=== PATIENT | female | born 1930 | race African-American/Black ===

== ENCOUNTER → 2020-08-25 | Outpatient (CLI) | payer MEDICARE ==
[2014-07-05 11:10] VITALS: BP 154/76
[~2020-08-25] MED LIST: ATOR10TA PO; CHOL400T14 PO; GLIP10TA13 PO; LISI10TA2 PO; METF-658 PO
--- NOTE | 2020-08-25 14:30 | KCIC ---
Bilateral digital screening mammograms with 3-D tomosynthesis: Reason for examination: Routine screening. Comparison is made to previous studies dated 12/08/2014 and 07/02/2012. Bilateral mammograms in CC and oblique projections were obtained with 2-D imaging and 3-D tomosynthesis imaging on a Siemens Inspiration unit and reviewed on the workstation. Interpretation was made with the benefit of CAD. The skin and nipples show no abnormalities. No abnormal axillary lymph nodes are seen. The breast parenchyma shows scattered fatty and fibroglandular density. (Breast density: Category B.) There appears to be clustered microcalcifications in the 3:00 position posteriorly in the left breast which may be associated with a small nodular density. Further evaluation with coned magnification views and left breast ultrasound is recommended. There are no other dominant masses, suspicious calcifications or architectural distortion. Scattered benign-appearing calcifications are present. Impression: Clustered calcifications at the 3:00 position posteriorly in the left breast which may be associated with a small nodule. Recommend further evaluation with coned magnification views and left breast ultrasound. BI-RADS Category 0: Incomplete. Needs additional imaging evaluation. "Our facility is accredited by the [employer] Mammography [employer]." This patient's information has been entered into a reminder system for the patient to be notified with the results of her examination and a target date for the next mammogram. Electronically signed by: Fide Armijo MD (08/25/2020 2:27 PM) [email or web address]
== END | disposition home or self-care (01) ==
LOC: KCIC MAMMO 09:15
PROVIDERS: ATTEND Internal Medicine
DX: Z12.31 Encounter for screening mammogram for malignant neoplasm of breast (principal)
CPT/HCPCS: 77063; 77067

== ENCOUNTER → 2020-10-24 | Outpatient (CLI) | payer MEDICARE ==
[2014-07-05 11:10] VITALS: BP 154/76
--- NOTE | 2020-10-24 10:55 | KCIC ---
Left digital diagnostic mammogram and left breast ultrasound Reason for examination: Workup of left outer breast nodule and microcalcifications Comparison is made to previous study dated mammogram August 25, 2020 and priors Left CC and ML magnification digital views obtained. Interpretation was made with the benefit of CAD. Left mammogram: The skin and nipples show no abnormalities. No abnormal lymph nodes are seen. The breast parenchyma is scattered fibroglandular elements. (Breast density: Category B.) at the left outer breast 3:00 position posterior depth there is a subcentimeter moderately dense mass with indistinct margins associated with several rounded punctate clustered microcalcifications with slight pleomorphism, the calcifications are new and the density and mass margins have become more distinct from prior studies. ULTRASOUND: At the left breast 2:00 position 7 cm from the nipple there is a 0.7 cm hypoechoic nonshadowing microlobular nonshadowing lesion which may be a cluster of cysts corresponding to the region of the mass and calcifications on mammography. While the sonographic features are not highly suspicious, the mammographic features are of greater suspicion and biopsy is advised. No axillary adenopathy. Impression: Left outer breast suspicious microcalcifications associated with a hypoechoic complex cystic or solid mass. Left breast ultrasound-guided core needle biopsy of the mass and calcifications is advised. If after biopsy the sonographic and mammographic lesions are discovered to be discordant, or if no significant calcifications are yielded from the ultrasound-guided biopsy, subsequent stereotactic mammographic guided needle biopsy would be a consideration. Findings were discussed with the patient at time of exam. These findings were called to Dr. Quiñones's medical office receptionist assistant [place] at 10:50 AM October 24, 2020. BI-RADS Category 4: Suspicious. "Our facility is accredited by the [employer]ammography [employer]." This patient's information has been entered into a reminder system for the patient to be notified with the results of her examination and a target date for the next mammogram. Electronically signed by: Nirmal Ortiz MD (10/24/2020 10:52 AM) [email or web address]
== END ==
LOC: KCIC MAMMO 09:36
PROVIDERS: ATTEND Internal Medicine
DX: N60.02 Solitary cyst of left breast (principal)
CPT/HCPCS: 76641; 77065

== ENCOUNTER → 2020-11-17 | Outpatient (CLI) | payer MEDICARE ==
[2014-07-05 11:10] VITALS: BP 154/76
--- NOTE | 2020-11-17 15:37 | RAD ---
Examination: MG DIAGNOSTICUNILAT MAMMO, US GDE NDL BX/ASPIR/INJ/LOC History: Reason: ABNORMAL LEFT MAMMOGRAM/POST BIOPSY CLIP PLACEMENT / Spl. Instructions: / History: Comparison/Correlation: None Findings: Risks, benefits, and alternatives regarding ultrasound-guided left breast biopsy of the 2:0 0 mass 7 cm from the nipple were discussed with the patient and informed consent was obtained. Cleans ing with ChloraPrep at the anticipated site of needle placement was performed. Sterile draping, steri le gel, and sterile probe cover is were utilized. Approximately 8 cc of 1 percent lidocaine was admin istered subcutaneously and along the expected course of the needle tracks. Lateral approach was utilized. Scalpel incision was made. Introducer for a 12-gauge needle was placed . A total of 5 passes were made with a 12-gauge needle via the introducer. Samples were placed in a f ormalin jar. Biopsy clip marker was then placed via the introducer. Mediolateral and CC digital images of the left breast were obtained. Scattered fibroglandular densiti es noted. Biopsy clip marker involving left upper-outer breast. Previously seen calcifications are si gnificantly less in number. A biopsy clip marker may be approximately 0.5 center anterior to the site of the recently seen calcifications. No hematoma. The patient tolerated the procedure well without immediate complications. Impression: Successful ultrasound guided core biopsy of the left breast 2:00 mass. Specimens sent to lab. Electronically signed by: Kash Álvarez MD (11/17/2020 3:35 PM) [id number]
--- NOTE | 2020-11-23 23:06 | PATHOLOGY ---
[facility] Accession Number: [id number] . 01 Material submitted: . breast - LEFT BREAST TISSUE, 2:00, 7CMFN. Modifiers: left, 2:00 . 01 Clinical history: . LEFT BREAST MASS . 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 (SEE COMMENT). (CLW:mane; 11/21/2020) [facility] 11/23/2020 2222 Local . 02 Comment: Properly controlled immunohistochemical stains are performed. . Blocks A1 and A2: CK5/6 - loss of staining in the ADH; Smooth muscle myosin - intact myoepithelial cells; P63 - intact myoepithelial cells. . The case is co-reviewed with Dr. Vickie Holliday and Dr. Genet Pereira. Clinical and radiographic correlation is required. The case will be discussed with Dr. Qasim Quiñones and/or his office on 11/27/20. . (CLW:mane; 11/21/2020) . 02 Electronically signed: . Kassandra Gustafson MD, Pathologist NPI- [id number] . 01 Gross description: . The specimen is received in formalin, labeled "Rola Christianson, left breast 2:00 7 cm from nipple". Received are multiple needle cores of fibrofatty tissue measuring 1.4 x 1.2 x 0.2 cm in aggregate dimensions. The specimen is submitted entirely in cassettes A1 through A3. The cold ischemic time is 1 minute. The total formalin fixation time is 11 hours and 15 minutes. (CAA; 11/17/2020) QAC/QAC 11/17/2020 1654 Local . 02 Pathologist provided ICD-10: N60.82 . 02 CPT . 174848, N61985, [id number] Specimen Comment: A courtesy copy of this report has been sent to [phone], [phone] Specimen Comment: [id number] Specimen Comment: Report sent to / DR QUIÑONES Performed at: 01 [facility] [address], [place] [id number] MD Damon Alejandre MD Phone: [phone] Performed at: 02 [facility] [address], [place] [id number] MD Real Ku MD Phone: [phone]
== END | disposition home or self-care (01) ==
LOC: US 10:12
PROVIDERS: ATTEND Internal Medicine
DX: R92.8 Other abnormal and inconclusive findings on diagnostic imaging of breast (principal); N63.21 Unspecified lump in the left breast, upper outer quadrant; D05.12 Intraductal carcinoma in situ of left breast; R92.0 Mammographic microcalcification found on diagnostic imaging of breast; Z88.0 Allergy status to penicillin; Z88.1 Allergy status to other antibiotic agents; Z88.8 Allergy status to other drugs, medicaments and biological substances
CPT/HCPCS: 19083; 77065; C1713; 19081; 76942

== ENCOUNTER → 2021-01-11 | Outpatient (CLI) | payer MEDICARE ==
[2014-07-05 11:10] VITALS: BP 154/76
[~2021-01-11] MED LIST changes: +CYAN25008 PO; +LISI10TA16 PO; -LISI10TA2 PO; +METF10007 PO
== END ==
LOC: LAB 13:25
PROVIDERS: ATTEND Specialist
DX: Z01.812 Encounter for preprocedural laboratory examination (principal); Z20.822 Contact with and (suspected) exposure to COVID-19
CPT/HCPCS: U0003

== ENCOUNTER 2021-01-24 11:30 | Day surgery (SDC) | payer MEDICARE ==
--- NOTE | 2021-01-23 22:32 | HP ---
ADMIT DATE: HISTORY OF PRESENT ILLNESS: The patient was doing well without any known disease until she had a routine mammogram, which showed a suspicious area of the left breast. This was biopsied and showed atypia with possible beginning of carcinoma of the breast. She therefore was sent to me. The patient had no other symptoms and is doing otherwise well. PAST MEDICAL HISTORY: Shows normal childhood diseases. ALLERGIES: She has no allergies. MEDICATIONS: She takes medication for hypertension only and also takes medicine for diabetes, which was by mouth. She does not take insulin and does take medicine for elevated cholesterol. PAST SURGICAL HISTORY: Included an ectopic and a hysterectomy. Otherwise, no other surgery. REVIEW OF SYSTEMS: Negative. She had a needle biopsy of the left breast, which showed the pathology noted above. FAMILY HISTORY: Positive for diabetes and hypertension. PHYSICAL EXAMINATION: GENERAL: Shows an alert female. She was in no acute distress. HEAD, EYES, NOSE AND THROAT: Grossly normal. CHEST: Bilaterally was clear to auscultation. HEART: Had no murmurs and no friction rubs. She did have a rate of 70 beats per minute and it was regular. ABDOMEN AND EXTREMITIES: Grossly negative as were the extremities. BREASTS: Examination of the right and left breast in the right and left axilla were negative. There were no masses, no skin retraction and there was no evidence of carcinoma as there was no dimpling either. IMPRESSION: Hypertension, hypercholesterolemia, diabetes and left breast mass. Plan to remove the left breast mass and proceed. It is noted that she did not want to have anything done, but the mass removed. We did discuss sentinel node biopsies and other treatments, but she did not want that. She only wanted at this point a biopsy of the concerned area of the left breast with complete removal of the mass if possible We will do that and proceed accordingly depending on the pathology. BARBARA DUARTE MD DR: FRANCESCA/geremias JOB#: [id number] / [id number]
[~2021-01-24 11:30] MED LIST changes: +HYDROmorphone 2 MG/ML VIAL IVP PRN; +IV RINGERS,LACTATED 1000ML 1,000 ML IV SCH; +METHYLENE BLUE 0.5% 10ml AMPULE. IJ ONE; +MORPHINE SULFATE 2 MG/ML VIAL. IVP PRN; +PROCHLORPERAZINE 10 MG/2 ML VIAL. IVP PRN; +fentaNYL PF VIAL 100 MCG/2 ML VIAL IVP PRN
[2021-01-24] MEDS ORDERED: DEXTROSE 50% 25 GM / 50ML DISP.SYRIN. IV ONE ×2 (12:12→12:15)
[2021-01-24] MEDS ORDERED: INSULIN LISPRO 100 UNIT/ML 3ML VIAL for OP,RR ONLY. SQ PRN (12:15)
[2021-01-24] MEDS ORDERED: METHYLENE BLUE 0.5% 10ml AMPULE. ONE (12:28)
[2021-01-24 12:47] LABS: BASO % 0 % (0-3); EOS # 0.1 x10^3/uL (0.0-0.7); EOS % 1 % (0-3); HEMATOCRIT 31.7 % (36.0-47.0); HEMOGLOBIN 10.2 g/dL (12.0-15.5); LYMPH % 23 % (24-48); MEAN CORPUSCULAR HEMOGLOBIN 26 pg (25-35); MEAN CORPUSCULAR HGB CONC 32 g/dL (31-37); MEAN CORPUSCULAR VOLUME 80 fL (79-100); MONO # 0.5 x10^3/uL (0.0-1.1); MONO % 6 % (0-9); NEUT # 5.9 x10^3/uL (1.8-7.7); NEUT % 70 % (31-73); PLATELET COUNT 197 x10^3/uL (140-400); RED BLOOD COUNT 3.95 x10^6/uL (3.50-5.40); RED CELL DISTRIBUTION WIDTH 16.3 % (11.5-14.5); WHITE BLOOD COUNT 8.4 x10^3/uL (4.0-11.0)
[2021-01-24] MEDS ORDERED: DEXAMETHASONE SOD PHOS 4 MG/ML VIAL ONE (12:50)
[2021-01-24] MEDS ORDERED: ONDANSETRON PF 4 MG/2 ML VIAL. ONE (12:50)
[2021-01-24] MEDS ORDERED: PROPOFOL 10 MG/ML (20ML) VIAL. IV ONE (12:50)
[2021-01-24] MEDS ORDERED: LIDOCAINE 2% PF 5 ML VIAL. ONE (12:50)
[2021-01-24 12:58] LABS: CALCIUM 9.5 mg/dL (8.5-10.1); CREATININE 0.9 mg/dL (0.6-1.0); GFR 71.5; POTASSIUM 4.2 mmol/L (3.5-5.1)
[2021-01-24 13:03] LABS: ALBUMIN 3.7 g/dL (3.4-5.0); ALBUMIN/GLOBULIN RATIO 0.9 (1.0-1.7); TOTAL BILIRUBIN 0.4 mg/dL (0.2-1.0); TOTAL PROTEIN 7.6 g/dL (6.4-8.2)
--- NOTE | 2021-01-24 13:27 | PDOC ---
SURGICAL PROGRESS NOTE DATE: 01/24/21 TIME: 13:26 no change in dictated H&P/ Vital Signs Vital Signs Date Time Temp Pulse Resp B/P (MAP) Pulse Ox O2 Delivery O2 Flow Rate FiO2 01/24/21 12:01 97.8 68 20 189/81 99 Room Air 97.8 Labs Laboratory Tests Test 01/24/21 12:09 01/24/21 12:35 01/24/21 12:45 01/24/21 13:09 Glucose (Fingerstick) 41 mg/dL (70-99) 39 mg/dL (70-99) 86 mg/dL (70-99) White Blood Count 8.4 x10^3/uL (4.0-11.0) Red Blood Count 3.95 x10^6/uL (3.50-5.40) Hemoglobin 10.2 g/dL (12.0-15.5) Hematocrit 31.7 % (36.0-47.0) Mean Corpuscular Volume 80 fL (79-100) Mean Corpuscular Hemoglobin 26 pg (25-35) Mean Corpuscular Hemoglobin Concent 32 g/dL (31-37) Red Cell Distribution Width 16.3 % (11.5-14.5) Platelet Count 197 x10^3/uL (140-400) Neutrophils (%) (Auto) 70 % (31-73) Lymphocytes (%) (Auto) 23 % (24-48) Monocytes (%) (Auto) 6 % (0-9) Eosinophils (%) (Auto) 1 % (0-3) Basophils (%) (Auto) 0 % (0-3) Neutrophils # (Auto) 5.9 x10^3/uL (1.8-7.7) Lymphocytes # (Auto) 2.0 x10^3/uL (1.0-4.8) Monocytes # (Auto) 0.5 x10^3/uL (0.0-1.1) Eosinophils # (Auto) 0.1 x10^3/uL (0.0-0.7) Basophils # (Auto) 0.0 x10^3/uL (0.0-0.2) Sodium Level 142 mmol/L (136-145) Potassium Level 4.2 mmol/L (3.5-5.1) Chloride Level 107 mmol/L (98-107) Carbon Dioxide Level 29 mmol/L (21-32) Anion Gap 6 (6-14) Blood Urea Nitrogen 13 mg/dL (7-20) Creatinine 0.9 mg/dL (0.6-1.0) Estimated GFR (Cockcroft-Gault) 71.5 BUN/Creatinine Ratio 14 (6-20) Glucose Level 48 mg/dL (70-99) Calcium Level 9.5 mg/dL (8.5-10.1) Total Bilirubin 0.4 mg/dL (0.2-1.0) Aspartate Amino Transf (AST/SGOT) 16 U/L (15-37) Alanine Aminotransferase (ALT/SGPT) 22 U/L (14-59) Alkaline Phosphatase 57 U/L (46-116) Total Protein 7.6 g/dL (6.4-8.2) Albumin 3.7 g/dL (3.4-5.0) Albumin/Globulin Ratio 0.9 (1.0-1.7) Laboratory Tests Test 01/24/21 12:09 01/24/21 12:35 01/24/21 12:45 01/24/21 13:09 Glucose (Fingerstick) 41 mg/dL (70-99) 39 mg/dL (70-99) 86 mg/dL (70-99) White Blood Count 8.4 x10^3/uL (4.0-11.0) Red Blood Count 3.95 x10^6/uL (3.50-5.40) Hemoglobin 10.2 g/dL (12.0-15.5) Hematocrit 31.7 % (36.0-47.0) Mean Corpuscular Volume 80 fL (79-100) Mean Corpuscular Hemoglobin 26 pg (25-35) Mean Corpuscular Hemoglobin Concent 32 g/dL (31-37) Red Cell Distribution Width 16.3 % (11.5-14.5) Platelet Count 197 x10^3/uL (140-400) Neutrophils (%) (Auto) 70 % (31-73) Lymphocytes (%) (Auto) 23 % (24-48) Monocytes (%) (Auto) 6 % (0-9) Eosinophils (%) (Auto) 1 % (0-3) Basophils (%) (Auto) 0 % (0-3) Neutrophils # (Auto) 5.9 x10^3/uL (1.8-7.7) Lymphocytes # (Auto) 2.0 x10^3/uL (1.0-4.8) Monocytes # (Auto) 0.5 x10^3/uL (0.0-1.1) Eosinophils # (Auto) 0.1 x10^3/uL (0.0-0.7) Basophils # (Auto) 0.0 x10^3/uL (0.0-0.2) Sodium Level 142 mmol/L (136-145) Potassium Level 4.2 mmol/L (3.5-5.1) Chloride Level 107 mmol/L (98-107) Carbon Dioxide Level 29 mmol/L (21-32) Anion Gap 6 (6-14) Blood Urea Nitrogen 13 mg/dL (7-20) Creatinine 0.9 mg/dL (0.6-1.0) Estimated GFR (Cockcroft-Gault) 71.5 BUN/Creatinine Ratio 14 (6-20) Glucose Level 48 mg/dL (70-99) Calcium Level 9.5 mg/dL (8.5-10.1) Total Bilirubin 0.4 mg/dL (0.2-1.0) Aspartate Amino Transf (AST/SGOT) 16 U/L (15-37) Alanine Aminotransferase (ALT/SGPT) 22 U/L (14-59) Alkaline Phosphatase 57 U/L (46-116) Total Protein 7.6 g/dL (6.4-8.2) Albumin 3.7 g/dL (3.4-5.0) Albumin/Globulin Ratio 0.9 (1.0-1.7) Justicifation of Admission Dx: Justifications for Admission: Justification of Admission Dx: Yes BARBARA DUARTE MD Jan 24, 2021 13:27
--- NOTE | 2021-01-24 13:32 | PDOC ---
SURGICAL PROGRESS NOTE DATE: 01/24/21 TIME: 13:27 Op Note: surgeon........................................Shen Pre and post op diag.......................mass left breast Anesthesia...................................general Procedure....................................excisionmass left breast via needle localizatio drains..........................................none Fluids..........................................see anesthesia sheet Blood loss....................................7cc condition......................................satisfactory Vital Signs Vital Signs Date Time Temp Pulse Resp B/P (MAP) Pulse Ox O2 Delivery O2 Flow Rate FiO2 01/24/21 12:01 97.8 68 20 189/81 99 Room Air 97.8 Labs Laboratory Tests Test 01/24/21 12:09 01/24/21 12:35 01/24/21 12:45 01/24/21 13:09 Glucose (Fingerstick) 41 mg/dL (70-99) 39 mg/dL (70-99) 86 mg/dL (70-99) White Blood Count 8.4 x10^3/uL (4.0-11.0) Red Blood Count 3.95 x10^6/uL (3.50-5.40) Hemoglobin 10.2 g/dL (12.0-15.5) Hematocrit 31.7 % (36.0-47.0) Mean Corpuscular Volume 80 fL (79-100) Mean Corpuscular Hemoglobin 26 pg (25-35) Mean Corpuscular Hemoglobin Concent 32 g/dL (31-37) Red Cell Distribution Width 16.3 % (11.5-14.5) Platelet Count 197 x10^3/uL (140-400) Neutrophils (%) (Auto) 70 % (31-73) Lymphocytes (%) (Auto) 23 % (24-48) Monocytes (%) (Auto) 6 % (0-9) Eosinophils (%) (Auto) 1 % (0-3) Basophils (%) (Auto) 0 % (0-3) Neutrophils # (Auto) 5.9 x10^3/uL (1.8-7.7) Lymphocytes # (Auto) 2.0 x10^3/uL (1.0-4.8) Monocytes # (Auto) 0.5 x10^3/uL (0.0-1.1) Eosinophils # (Auto) 0.1 x10^3/uL (0.0-0.7) Basophils # (Auto) 0.0 x10^3/uL (0.0-0.2) Sodium Level 142 mmol/L (136-145) Potassium Level 4.2 mmol/L (3.5-5.1) Chloride Level 107 mmol/L (98-107) Carbon Dioxide Level 29 mmol/L (21-32) Anion Gap 6 (6-14) Blood Urea Nitrogen 13 mg/dL (7-20) Creatinine 0.9 mg/dL (0.6-1.0) Estimated GFR (Cockcroft-Gault) 71.5 BUN/Creatinine Ratio 14 (6-20) Glucose Level 48 mg/dL (70-99) Calcium Level 9.5 mg/dL (8.5-10.1) Total Bilirubin 0.4 mg/dL (0.2-1.0) Aspartate Amino Transf (AST/SGOT) 16 U/L (15-37) Alanine Aminotransferase (ALT/SGPT) 22 U/L (14-59) Alkaline Phosphatase 57 U/L (46-116) Total Protein 7.6 g/dL (6.4-8.2) Albumin 3.7 g/dL (3.4-5.0) Albumin/Globulin Ratio 0.9 (1.0-1.7) Laboratory Tests Test 01/24/21 12:09 01/24/21 12:35 01/24/21 12:45 01/24/21 13:09 Glucose (Fingerstick) 41 mg/dL (70-99) 39 mg/dL (70-99) 86 mg/dL (70-99) White Blood Count 8.4 x10^3/uL (4.0-11.0) Red Blood Count 3.95 x10^6/uL (3.50-5.40) Hemoglobin 10.2 g/dL (12.0-15.5) Hematocrit 31.7 % (36.0-47.0) Mean Corpuscular Volume 80 fL (79-100) Mean Corpuscular Hemoglobin 26 pg (25-35) Mean Corpuscular Hemoglobin Concent 32 g/dL (31-37) Red Cell Distribution Width 16.3 % (11.5-14.5) Platelet Count 197 x10^3/uL (140-400) Neutrophils (%) (Auto) 70 % (31-73) Lymphocytes (%) (Auto) 23 % (24-48) Monocytes (%) (Auto) 6 % (0-9) Eosinophils (%) (Auto) 1 % (0-3) Basophils (%) (Auto) 0 % (0-3) Neutrophils # (Auto) 5.9 x10^3/uL (1.8-7.7) Lymphocytes # (Auto) 2.0 x10^3/uL (1.0-4.8) Monocytes # (Auto) 0.5 x10^3/uL (0.0-1.1) Eosinophils # (Auto) 0.1 x10^3/uL (0.0-0.7) Basophils # (Auto) 0.0 x10^3/uL (0.0-0.2) Sodium Level 142 mmol/L (136-145) Potassium Level 4.2 mmol/L (3.5-5.1) Chloride Level 107 mmol/L (98-107) Carbon Dioxide Level 29 mmol/L (21-32) Anion Gap 6 (6-14) Blood Urea Nitrogen 13 mg/dL (7-20) Creatinine 0.9 mg/dL (0.6-1.0) Estimated GFR (Cockcroft-Gault) 71.5 BUN/Creatinine Ratio 14 (6-20) Glucose Level 48 mg/dL (70-99) Calcium Level 9.5 mg/dL (8.5-10.1) Total Bilirubin 0.4 mg/dL (0.2-1.0) Aspartate Amino Transf (AST/SGOT) 16 U/L (15-37) Alanine Aminotransferase (ALT/SGPT) 22 U/L (14-59) Alkaline Phosphatase 57 U/L (46-116) Total Protein 7.6 g/dL (6.4-8.2) Albumin 3.7 g/dL (3.4-5.0) Albumin/Globulin Ratio 0.9 (1.0-1.7) Justicifation of Admission Dx: Justifications for Admission: Justification of Admission Dx: Yes BARBARA DUARTE MD Jan 24, 2021 13:32
[2021-01-24] MEDS ORDERED: ceFAZolin SODIUM IV Push 1 GM VIAL. IVP ONE ×2 (14:12→14:44)
[2021-01-24] MEDS ORDERED: fentaNYL PF VIAL 100 MCG/2 ML VIAL ONE (14:43)
[2021-01-24] MEDS ORDERED: SEVOFLURANE 61 TO 120 MINUTES. IH ONE (15:15)
--- NOTE | 2021-01-24 15:45 | DISCH ---
DISCHARGE INSTRUCTIONS Condition on Discharge Condition on Discharge: Stable Activity After Discharge Activity Instructions for Disc: No restrictions Diet after Discharge Additional Diet Restrictions: diet as pre op Wound Incision Care Other wound/incision instructi: keep wound and dressing clean and dry Follow-Up Follow up with: call and make appointment to see Dr. Duarte in 14 days. BARBARA DUARTE MD Jan 24, 2021 15:45
[2021-01-24] MEDS ORDERED: oxyCODONE/APAP 5/325 1 TAB TABLET PO ONE (16:00)
[2021-01-24] MEDS ORDERED: HYDR-2761 PO (16:09)
[2021-01-24 16:35] VITALS: BP 162/72
--- NOTE | 2021-01-24 18:25 | RAD ---
ADDENDUM #1 A tissue specimen was subsequently radiographed and the specimen x-ray showed the biopsy marker withi n the specimen at the J2 coordinates in the specimen, as well as the hook wire and residual density a ssociated with the biopsied mass. Findings discussed with Dr. Gotti by telephone at 3:05 PM on 2020. Electronically signed by: Nola Fritz MD (01/25/2021 6:22 PM) [id number] ORIGINAL REPORT Examination: Mammographically guided left breast needle localization. INDICATION: 89-year-old woman with atypical ductal hyperplasia on ultrasound-guided core needle biops y of a mass with associated calcifications in the left breast is referred by her surgeon for preopera tive needle localization. COMPARISON: Ultrasound guided left breast core needle biopsy of 11/17/2020, and post procedure mammog jaleesa that same day. TECHNIQUE AND FINDINGS: Informed consent was obtained and an appropriate procedural pause observed. Using standard sterile te chnique, mammographic imaging guidance and local anesthesia, a 7.5 cm Mann needle was advanced fro m a craniocaudal approach into the lateral left breast targeting the S-shaped biopsy marker and the r esidual mass. After confirmation of satisfactory needle tip positioning, a 0.4 mL of methylene blue were injected a t the biopsy site for intraoperative guidance after which the hook wire was threaded through the need le, maintained in position and the needle removed with the wire left in place. Final postprocedural images showed satisfactory positioning of the hook wire adjacent to the biopsy m arker and residual mass. No apparent complications. Imaging findings reviewed with the patient's refe rring surgeon at the conclusion of the procedure. : Successful mammographically guided left breast needle localization for planned later same day excisio nal biopsy. A specimen radiograph is recommended. It should contains the biopsy marker, hook wire, an d residual mass. Electronically signed by: Nola Fritz MD (01/24/2021 6:23 PM) [id number]
--- NOTE | 2021-01-24 20:19 | OP ---
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 ANESTHESIA: General. PROCEDURE: Excision of mass, left breast. TECHNIQUE: Under general anesthesia, the patient was properly prepped and draped in a routine fashion. She had a guidewire put in and the mass was small and not palpable. The guidewire was in the upper outer quadrant and we made an incision somewhat inferior to this and so that if we had to do more surgery later, we could do it without going through a previous incision. As such, the incision was made about an inch below the guidewire and following the skin lines in the upper outer quadrant of the left breast, we did this with a 15 blade about an inch and half to 2 inches in size. We got into the subcutaneous and then used Meme retractors to elevate it superiorly and medially in the subcutaneous over to the guidewire. The mass was about 7 cm beneath the skin and as such, we went over to the guidewire and then divided the tissue around it as we grasped the guidewire and the tissue with a clamp. We then went around the area and around the guidewire and took it downgoing wide so that we would not enter the mass. We got down pretty deep and we could actually feel the mass. We also saw the methylene blue that had been put there. We went well around the mass so that we got grossly at least well around it and again did not enter the mass that we could tail. We slowly excised it and the methylene blue where the mass was. Had a generous piece of breast tissue and we did this, so that should it be malignant at her age, it may avoid further surgery we will have to see. At any rate, we had one small bleeder, which had to be cauterized and then sent this specimen to the x-ray department and the radiologist did say that the methylene blue, the clip that had previously been placed at the biopsy site, the tumor and mass were all in the specimen and that no further surgery was necessary at this time. Certainly not to remove the mass as it had been removed. The resultant defect was then irrigated with saline and then approximated using 3-0 Vicryl interrupted sutures, deep in the breast tissue. A 4-0 was used more for the superficial subcutaneous tissues and deep dermis. The skin was closed using subcuticular 5-0 Vicryl, which normally do not use, but in this case with the coronavirus and the difficulty, the patient had to get into the hospital and being seen. We thought this would be the better technique as they would not require suture removal and therefore doctor visit would not be urgent. This having been done, the procedure was terminated. The sterile dressing was then applied, making certain not to dress any tape on the nipple and the procedure was terminated. The blood loss was probably 7 or 8 mL. Fluids given can be obtained from the anesthesia sheet. No drains were used. Condition of the patient was satisfactory as she has returned to the recovery room. STANISLAW DUARTE MD DR: FRANCESCA/geremias JOB#: [id number] / [id number]
== END 2021-01-24 16:55 | disposition home or self-care (01) ==
LOC: US 11:30
PROVIDERS: ATTEND Specialist
DX: D05.12 Intraductal carcinoma in situ of left breast (principal); R92.8 Other abnormal and inconclusive findings on diagnostic imaging of breast; N60.12 Diffuse cystic mastopathy of left breast; N60.92 Unspecified benign mammary dysplasia of left breast; E78.00 Pure hypercholesterolemia, unspecified; I10 Essential (primary) hypertension; J45.909 Unspecified asthma, uncomplicated; E11.9 Type 2 diabetes mellitus without complications; M19.90 Unspecified osteoarthritis, unspecified site; Z90.710 Acquired absence of both cervix and uterus; Z98.890 Other specified postprocedural states; Z79.84 Long term (current) use of oral hypoglycemic drugs; Z88.0 Allergy status to penicillin; Z88.8 Allergy status to other drugs, medicaments and biological substances
CPT/HCPCS: 19125; 19281; 36415; 76098; 80053; 82962; 85025; 88305; J0690; J1100; J2405; J2704; J3010; J7120; Q9968

== ENCOUNTER → 2021-09-12 | Outpatient (CLI) | payer MEDICARE ==
[~2021-09-12] MED LIST changes: +HYDR-2761 PO; -HYDROmorphone 2 MG/ML VIAL IVP PRN; -IV RINGERS,LACTATED 1000ML 1,000 ML IV SCH; -METHYLENE BLUE 0.5% 10ml AMPULE. IJ ONE; -MORPHINE SULFATE 2 MG/ML VIAL. IVP PRN; -PROCHLORPERAZINE 10 MG/2 ML VIAL. IVP PRN; -fentaNYL PF VIAL 100 MCG/2 ML VIAL IVP PRN
--- NOTE | 2021-09-12 16:38 | KCIC ---
Examination: 3 views of the right knee HISTORY: History of right knee pain, injury COMPARISON: None available FINDINGS: Severe joint space loss medial, lateral, patellofemoral compartments with large osteophyte formation identified in the medial, lateral, patellofemoral compartments. Small knee joint effusion. 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 Electronically signed by: Jose Luis Nova MD (09/12/2021 4:36 PM) [id number]
== END ==
LOC: KCIC 15:31
PROVIDERS: ATTEND Internal Medicine
DX: M17.11 Unilateral primary osteoarthritis, right knee (principal)
CPT/HCPCS: 73562

== ENCOUNTER 2021-12-09 08:13 | Observation (INO) | payer MEDICARE ==
[~2021-12-09] VITALS: Ht 160 cm; Wt 68.1 kg
--- NOTE | 2021-12-09 08:17 | PHYS DOC ---
Past Medical History Past Medical History: Diabetes-Type II, Hypertension Past Surgical History: Hysterectomy Past Surgical History Mastectomy Ectopic surgery General Adult HPI: HPI: Patient is a 89 year old female who presents from home via EMS for altered mental status, generalized weakness, multiple falls out of bed. EMS noted a blood sugar of 60 in route, she is 30 here. The patient is drowsy, but she is awake. She follows commands. She has no specific complaints other than feeling weak. Previous records indicate a history of type 2 diabetes mellitus with oral hypoglycemic agents only. No reported history of taking insulin. The patient admits to not feeling very well for the last few days, she has been taking her oral hypoglycemic medication but she has not been eating very much. She was profoundly hypoglycemic on arrival, and after being fed and given oral glucose solution, her blood sugar is markedly proved, and she reports feeling much better she has no physical complaints of any pain or discomfort. She denies headache, dizziness, nausea vomiting, abdominal pain, chest pain, dyspnea. She reports that she has been lightheaded and dizzy and has fallen out of bed a few times. She denies any loss of consciousness. She reports no further dizziness or generalized weakness any longer now that her blood sugar is normal is any neck pain or back pain. She denies headache. Review of Systems: Review of Systems: Constitutional: Denies fever or chills. Generalized malaise and fatigue Eyes: Denies change in visual acuity. No vision loss. HENT: Denies nasal congestion or sore throat. [] Respiratory: Denies cough or shortness of breath. [] Cardiovascular: Denies chest pain or edema. [] GI: Denies abdominal pain, nausea, vomiting, or diarrhea : Denies urinary symptom Musculoskeletal: Denies back pain or joint pain. [] Integument: Denies rash. [] Neurologic: Denies headache, focal weakness or sensory changes. Reports generalized weakness, no focal weakness Endocrine: Denies polyuria or polydipsia. Hypoglycemia episodes. Lymphatic: Denies swollen glands. [] Psychiatric: Denies depression or anxiety. [] Heart Score: C/O Chest Pain: No Risk Factors: Risk Factors: DM, Current or recent (<one month) smoker, HTN, HLP, family history of CAD, obesity. Risk Scores: Score 0 - 3: 2.5% MACE over next 6 weeks - Discharge Home Score 4 - 6: 20.3% MACE over next 6 weeks - Admit for Clinical Observation Score 7 - 10: 72.7% MACE over next 6 weeks - Early Invasive Strategies Allergies: Allergies: Allergies Coded Allergies Type Severity Reaction Last Updated Verified Penicillins Allergy Intermediate Rash 01/24/21 Yes ampicillin Allergy Intermediate Rash 01/24/21 Yes celecoxib Allergy Intermediate Swelling 01/24/21 Yes Physical Exam: PE: Constitutional: Well developed, well nourished, no acute distress, non-toxic appearance. [] HENT: Normocephalic, atraumatic, oropharynx is patent and clear, mucous membranes moist, external ears normal bilaterally, no rhinorrhea or epistaxis. Eyes: PERRL, EOMI, conjunctiva normal, no discharge. [] Neck: Normal range of motion, no tenderness, supple, no stridor. No midline tenderness or step-offs, no deformity. Trachea is midline Cardiovascular:Heart rate regular rhythm, was 2 radial and +2 posterior tibial pulses bilaterally Lungs & Thorax: Bilateral breath sounds clear to auscultation [] Abdomen: Abdomen is soft, obese, nondistended, nontender to palpation, normal bowel sounds, no palpable masses organomegaly Skin: Warm, dry, no erythema, no rash. [] Back: No tenderness, no CVA tenderness. [] Extremities: No tenderness, no cyanosis, no clubbing, ROM intact, no edema. Pelvis is stable. No limb deformities. No calf tenderness. Neurologic: She is awake, alert, oriented x3, cranial nerves II through XII grossly intact, 5 out of 5 motor strength all 4 extremities, no limb ataxia, sensation is grossly intact, speech is clear and fluent. Gait is slow but steady. Psychologic: Affect normal, judgement normal, mood normal. She is very pleasant cooperative. EKG: EKG: EKG is interpreted at 0911 Rhythms is sinus Rate is 71 bpm marked artifact No STEMI Radiology/Procedures: Radiology/Procedures: IMAGING REPORT Signed PATIENT: MARCELLO DYKES ACCOUNT: [id number] : 1930 LOCATION: ER AGE: 89 SEX: F EXAM STATUS: REG ER ORD. PHYSICIAN: STACI MICHEL DO REASON: falls, weakness PROCEDURE: PORTABLE CHEST 1V AP portable chest radiograph 12/09/2021 Clinical History: Weakness, falls. An AP erect portable digital radiograph of the chest was obtained. The cardiac silhouette is mildly enlarged. The thoracic aorta is mildly tortuous. Atherosclerotic calcification of the thoracic aorta is seen. No acute pulmonary infiltrate is noted. No pneumothorax or pleural effusion is seen. Degenerative changes are seen involving the thoracic spine and both shoulders. IMPRESSION: No acute abnormality is seen. Electronically signed by: Carlos Caldera MD (12/09/2021 9:22 AM) [id number] DICTATED and SIGNED BY: CARLOS CALDERA MD DATE: 12/09/21 [id number] IMAGING REPORT Signed PATIENT: MARCELLO DYKES ACCOUNT: [id number] : 1930 LOCATION: ER AGE: 89 SEX: F EXAM STATUS: REG ER ORD. PHYSICIAN: STACI MICHEL DO REASON: falls, AMS PROCEDURE: CT HEAD WO CONTRAST CT HEAD INDICATION: Fall, altered mental status COMPARISON: None Available. Exposure: One or more of the following individualized dose reduction techniques were utilized for this examination: 1. Automated exposure control 2. Adjustment of the mA and/or kV according to patient size 3. Use of iterative reconstruction technique TECHNIQUE: 5 mm contiguous axial images were obtained from the skull base to the vertex in both bone and soft tissue algorithm. FINDINGS: No abnormal attenuation within the brain parenchyma. Mild contusion left parietal scalp region. No evidence of acute intracranial hemorrhage. No extra-axial fluid collections. No mass effect or midline shift. Ventricular size is appropriate. Basal cisterns are patent. No fractures identified.Wren-white differentiation is preserved.Globes and orbits are within normal limits. Paranasal sinuses and mastoid air cells are clear. IMPRESSION: 1. No acute intracranial findings. 2. Mild contusion left parietal scalp region. Electronically signed by: Jose Luis Nova MD (12/09/2021 12:04 PM) [id number] DICTATED and SIGNED BY: JOSE LUIS NOVA MD DATE: 12/09/21 [id number] Course & Med Decision Making: Course & Med Decision Making Pertinent Labs and Imaging studies reviewed. (See chart for details) The patient is given oral glucose solution and she is fed. Her blood sugar has remained stable. She is mentating well. She was able to get up a couple of times to use the restroom, but she reports that she feels subjectively weak. No objective evidence of weakness. She reports that she does feel lightheaded/dizzy when she gets up/stands up but when she is lying flat, she has no symptoms. She does not feel comfortable returning home. I have discussed this with Dr. Michael, who is on-call for the patient's primary care doctor, Dr. Quiñones. He agrees with the plan for admission, she will be admitted under Dr. Quiñones. Dragon Disclaimer: Calin Disclaimer: This electronic medical record was generated, in whole or in part, using a voice recognition dictation system. Departure Departure Impression: Primary Impression: Hypoglycemia Additional Impressions: Multiple falls Dizziness Disposition: ADMITTED INPATIENT Admitting Physician: Darci Quiñones Condition: STABLE Referrals: DARCI QUIÑONES MD (PCP) STACI MICHEL DO Dec 09, 2021 08:17
[2021-12-09] MEDS ORDERED: DEXTROSE ORAL GEL 15 GM TUBE. ONE (08:21)
[2021-12-09] MEDS ORDERED: DEXTROSE ORAL GEL 15 GM TUBE. PO ONE (08:30)
--- NOTE | 2021-12-09 09:24 | RAD ---
AP portable chest radiograph 12/09/2021 Clinical History: Weakness, falls. An AP erect portable digital radiograph of the chest was obtained. The cardiac silhouette is mildly enlarged. The thoracic aorta is mildly tortuous. Atherosclerotic juvenal cification of the thoracic aorta is seen. No acute pulmonary infiltrate is noted. No pneumothorax or pleural effusion is seen. Degenerative changes are seen involving the thoracic spine and both shoulde rs. IMPRESSION: No acute abnormality is seen. Electronically signed by: Carlos Caldera MD (12/09/2021 9:22 AM) [id number]
--- NOTE | 2021-12-09 10:08 | EKG ---
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
[2021-12-09 10:30] LABS: BASO % 0 % (0-3); EOS % 0 % (0-3); HEMATOCRIT 31.6 % (36.0-47.0); HEMOGLOBIN 10.2 g/dL (12.0-15.5); LYMPH # 1.3 x10^3/uL (1.0-4.8); LYMPH % 16 % (24-48); MEAN CORPUSCULAR HEMOGLOBIN 26 pg (25-35); MEAN CORPUSCULAR HGB CONC 32 g/dL (31-37); MEAN CORPUSCULAR VOLUME 80 fL (79-100); MONO # 0.4 x10^3/uL (0.0-1.1); MONO % 5 % (0-9); NEUT # 6.4 x10^3/uL (1.8-7.7); NEUT % 79 % (31-73); PLATELET COUNT 244 x10^3/uL (140-400); RED BLOOD COUNT 3.96 x10^6/uL (3.50-5.40); RED CELL DISTRIBUTION WIDTH 16.3 % (11.5-14.5); WHITE BLOOD COUNT 8.1 x10^3/uL (4.0-11.0)
[2021-12-09 10:36] LABS: BILIRUBIN,URINE NEGATIVE (NEG); CLARITY,URINE CLEAR; COLOR,URINE YELLOW; NITRITE,URINE NEGATIVE (NEG); PH,URINE 6.5 (<5.0-8.0); PROTEIN,URINE 30 mg/dL (NEG-TRACE); UROBILINOGEN,URINE 0.2 mg/dL (0.2 mg/dL)
[2021-12-09 10:44] LABS: CALCIUM 9.4 mg/dL (8.5-10.1); CREATININE 0.8 mg/dL (0.6-1.0); GFR 81.7; POTASSIUM 4.2 mmol/L (3.5-5.1)
[2021-12-09 10:50] LABS: ALBUMIN 3.4 g/dL (3.4-5.0); ALBUMIN/GLOBULIN RATIO 0.8 (1.0-1.7); MAGNESIUM 1.8 mg/dL (1.8-2.4); PHOSPHORUS 2.8 mg/dL (2.6-4.7); TOTAL BILIRUBIN 0.2 mg/dL (0.2-1.0); TOTAL PROTEIN 7.5 g/dL (6.4-8.2)
[2021-12-09 11:10] LABS: BACTERIA,URINE 0 /HPF (0-FEW); RBC,URINE OCC /HPF (0-2); WBC,URINE OCC /HPF (0-4)
--- NOTE | 2021-12-09 12:06 | RAD ---
CT HEAD INDICATION: Fall, altered mental status COMPARISON: None Available. Exposure: One or more of the following individualized dose reduction techniques were utilized for thi s examination: 1. Automated exposure control 2. Adjustment of the mA and/or kV according to patient size 3. Use of iterative reconstruction technique TECHNIQUE: 5 mm contiguous axial images were obtained from the skull base to the vertex in both bone and soft tissue algorithm. FINDINGS: No abnormal attenuation within the brain parenchyma. Mild contusion left parietal scalp region. No evidence of acute intracranial hemorrhage. No extra-axial fluid collections. No mass effect or midline shift. Ventricular size is appropriate. Basal cisterns are patent. No fractures identified.Wren-white differentiation is preserved.Globes and orbits are within normal l imits. Paranasal sinuses and mastoid air cells are clear. IMPRESSION: 1. No acute intracranial findings. 2. Mild contusion left parietal scalp region. Electronically signed by: Jose Luis Nova MD (12/09/2021 12:04 PM) [id number]
[2021-12-09] MEDS ORDERED: ONDANSETRON PF 4 MG/2 ML VIAL. IVP PRN (16:00)
[2021-12-09] MEDS ORDERED: ACETAMINOPHEN 325 MG TABLET. PO PRN (16:00)
[2021-12-09 19:00] VITALS: BP 184/64
[2021-12-09] MEDS ORDERED: HYDROcodone/APAP 5/325MG 1 TAB TABLET PO PRN (22:45)
[2021-12-09 22:53] VITALS: BP 128/53
[2021-12-10 03:00] VITALS: BP 144/51
[2021-12-10 07:00] VITALS: BP 152/52
[2021-12-10] MEDS: LISINOPRIL 20 MG TABLET PO SCH ×2 (09:04→09:05)
[2021-12-10] MEDS: ATORVASTATIN CALCIUM 20 MG TABLET PO SCH ×2 (09:04→09:05)
--- NOTE | 2021-12-10 09:43 | PDOC ---
Provider Note Date of Service: DATE: 12/10/21 TIME: 09:43 Provider Note H&P dictated #[id number] Justifications for Admission Other Justification DARCI KAN MD Dec 10, 2021 09:43
--- NOTE | 2021-12-10 09:46 | DISCH ---
DISCHARGE INSTRUCTIONS Condition on Discharge Condition on Discharge: Stable Activity After Discharge Activity Instructions for Disc: Activity as tolerated Diet after Discharge Diet after Discharge: Regular Additional Diet Restrictions: diet as pre op Checks after Discharge Checks after discharge: Check blood press - daily, Check blood sugar, ac/hs Contacting the DRDavid after DC Call your doctor for: Concerns you may have Follow-Up Follow up with: Dr.Pratip Kan in 2 days. DARCI KAN MD Dec 10, 2021 09:46
--- NOTE | 2021-12-10 10:34 | HP ---
DATE OF SERVICE: 12/10/2021 ADMIT DATE: 12/09/2021 COMBINED HISTORY AND PHYSICAL AND DISCHARGE SUMMARY HISTORY OF PRESENT ILLNESS: This 89 years old female woke up yesterday morning and she was noted to have profound weakness and change in mental status. She says that she just could not get up and go to the bathroom. She had eaten a big meal the day before and has her sugars under control as per the patient. She did not have any hypoglycemia attacks recently. She has been eating well. She did not have any nausea, vomiting, diarrhea, chest pains, cold, cough, congestion, palpitations. EMS checked her blood sugar and it was 60 in the emergency room, blood sugar was 30. She was treated for hypoglycemia and because of the change in mental status and weakness, the patient did not want to go home. She has history of diabetes, hypertension, hyperlipidemia and is on glipizide and metformin. CT scan of head did not show any acute intracranial findings. There was mild contusion of the left parietal scalp region. The patient denies any fall. SYSTEMS REVIEW: The patient denies any dizziness, palpitations, chest pains, weakness, abdominal pain, nausea, vomiting, diarrhea, fever, chills, dysuria or any other symptoms at this time. She states that she is feeling better. PAST MEDICAL HISTORY: The patient has a history of hypertension, hyperlipidemia, diabetes mellitus type 2, anemia, hypothyroidism, asthma, depression, cirrhosis of liver, right ventricular mass, diabetes mellitus type 2. PAST SURGICAL HISTORY: Includes hysterectomy, right knee injury, left breast mass removal, appendectomy, tubal . FAMILY HISTORY: Positive for cancer of colon, two sisters and two brothers. Father had breathing problems and coronary artery disease and mother had diabetes. Sister had coronary artery disease. SOCIAL HISTORY: No history of smoking, alcoholism, or drug abuse. ALLERGIES: THE PATIENT IS ALLERGIC TO PENICILLIN, AMOXICILLIN, AND CELECOXIB. MEDICATIONS: Includes lisinopril, atorvastatin, glipizide, metformin. PHYSICAL EXAMINATION: GENERAL: The patient is an elderly female who is alert, oriented x 3, and not in acute distress. VITAL SIGNS: Temperature 97.6, pulse 67 per minute, respirations 18 per minute, blood pressure 184/64, currently blood pressure is 152/52. The patient is alert, oriented x 3, and not in acute distress. EYES: Pupils reacting to light. Conjunctivae pale. Sclerae muddy. HEENT: Unremarkable. NECK: Supple. JVP normal. No thyromegaly. Trachea midline. LUNGS: Clear. CARDIOVASCULAR: S1, S2, regular. ABDOMEN: Soft, nontender. No guarding, no rigidity. Bowel sounds present. EXTREMITIES: No edema, no cyanosis, no calf tenderness. CENTRAL NERVOUS SYSTEM: Alert and oriented, moves all extremities. Gait not tested. The patient is back to her baseline mental status. LABORATORY FINDINGS: CT scan of head was negative for any acute changes. Chest x-ray did not show any acute abnormalities. Blood sugars were 27, 39, 80. Labs showed blood sugar of 167. CK 247. Sodium 139, potassium 4.2, BUN 12, creatinine 0.8. Troponin 24, albumin 3.4. Glucose this morning is 93. Lactic acid level was 2.7 and 1.1. Urinalysis is negative. FINAL DIAGNOSES: 1. Acute hypoglycemia, corrected. 2. Hypertension. 3. Diabetes mellitus type 2. 4. Hyperlipidemia. 5. Acute metabolic encephalopathy and a fall due to hypoglycemia, resolved. 6. Anemia. PLAN: Hypoglycemia is corrected, we will discontinue glipizide and metformin. I have advised the patient to check the blood sugar 3 times a day and eat properly and drink plenty of fluids. I will see her in the office on Friday within 2 days and decide if we can replace her glipizide with another medication such as Jardiance. We will follow up A1c and other labs in the office. Clinically, she is doing well. She does not want any home health services. I will order physical therapy and occupational therapy to evaluate and treat her. If she remains stable, she can be discharged later home today. MARIANA DR: Jana TID: [id number]
[2021-12-10 11:00] VITALS: BP 149/50
--- NOTE | 2021-12-10 11:32 | NUR ---
SW following. Discussed with RN, pt from home with family, room air, ada diet. Discharge order for home with self care. RN advised no SW needs at this time.
--- NOTE | 2021-12-10 15:10 | NUR ---
Pt provided with discharge instructions and taken by wheelchair to main entrance by RN and assisted into family members vehicle
== END 2021-12-10 15:05 | disposition home or self-care (01) ==
LOC: ER 08:13 → INTOOBSV 09:49 → 4 NORTH 09:49 → ER 18:26
PROVIDERS: ADMIT Internal Medicine; ATTEND Internal Medicine
DX: E11.649 Type 2 diabetes mellitus with hypoglycemia without coma (principal); I10 Essential (primary) hypertension; E78.5 Hyperlipidemia, unspecified; G93.41 Metabolic encephalopathy; D64.9 Anemia, unspecified; E03.9 Hypothyroidism, unspecified; I70.0 Atherosclerosis of aorta; J45.909 Unspecified asthma, uncomplicated; K74.60 Unspecified cirrhosis of liver; R29.6 Repeated falls; S30.0XXA Contusion of lower back and pelvis, initial encounter; F32.9 Major depressive disorder, single episode, unspecified; R42 Dizziness and giddiness; Z79.899 Other long term (current) drug therapy; Z90.49 Acquired absence of other specified parts of digestive tract; Z90.710 Acquired absence of both cervix and uterus; Z98.890 Other specified postprocedural states; W19.XXXA Unspecified fall, initial encounter; Y93.89 Activity, other specified; Y92.89 Other specified places as the place of occurrence of the external cause; Y99.8 Other external cause status
CPT/HCPCS: 36415; 70450; 71045; 80053; 81001; 82550; 82962; 83605; 83735; 84100; 84484; 85025; 87040; 93005; 97116; 97162; 97165; 99285; G0378; G0379

== ENCOUNTER → 2022-02-19 | Outpatient (CLI) | payer MEDICARE ==
--- NOTE | 2022-02-19 16:19 | KCIC ---
Bilateral digital screening mammograms with 3-D tomosynthesis: Reason for examination: Routine screening. Comparison is made to previous studies dated 10/24/2020, 08/25/2020 and 12/08/2014. Bilateral mammograms in CC and oblique projections were obtained with 2-D imaging and 3-D tomosynthes is imaging on a Siemens Inspiration unit and reviewed on the workstation. Interpretation was made ramila faye the benefit of CAD. The skin and nipples show no abnormalities. No abnormal axillary lymph nodes are seen. The breast par enchyma shows scattered fatty and fibroglandular density. (Breast density: Category B.) There are pos top changes posterior laterally in the left breast. There continues be a small nodular density at the 9:00 position of the right breast with adjacent biopsy clip which is stable. There are no new domina nt masses, suspicious calcifications or architectural distortion. Benign calcifications are present. Impression: No evidence of malignancy. Recommend routine screening. BI-RAD Category 2: Benign. "Our facility is accredited by the [employer] [place] [employer] Mammography Program." This patient's information has been entered into a reminder system for the patient to be notified ramila faye the results of her examination and a target date for the next mammogram. Electronically signed by: Fide Armijo MD (02/19/2022 4:16 PM) [id number]
== END ==
LOC: KCIC MAMMO 12:40
PROVIDERS: ATTEND Internal Medicine
DX: Z12.31 Encounter for screening mammogram for malignant neoplasm of breast (principal)
CPT/HCPCS: 77063; 77067